=== PATIENT | female | born 1985 | race Two or more races ===

== ENCOUNTER 2017-06-25 13:36 | Emergency (ER) | payer MEDICAID ==
[~2017-06-25] VITALS: Ht 162.6 cm; Wt 75.0 kg
[2017-06-25 13:58] VITALS: BP 114/64
[2017-06-25] MEDS ORDERED: IBUPROFEN 600MG TABLET PO ONE (14:15)
== END 2017-06-25 18:12 | disposition left against medical advice (07) ==
LOC: EDBD 13:36 → ER 13:36
DX: M25.511 Pain in right shoulder (principal)
CPT/HCPCS: 81025; 99282